=== PATIENT | female | born 1995 | race Caucasian/White ===

== ENCOUNTER 2021-02-22 02:40 | Inpatient (IN) | payer OTHER ==
[~2021-02-22] VITALS: Ht 170.2 cm; Wt 100.7 kg
[~2021-02-22 02:40] MED LIST: BACTRIM DS TAB1 EACH PO; PYRIDIUM100 MG PO; ZOFRAN8 MG PO
[2021-02-22 04:01] LABS: HCT 36.6 % (37.0-47.0); HGB 12.7 g/dl (12.5-16.0); MCH 31.4 pg (25.0-31.0); MCHC 34.7 g/dL (32.0-36.0); MCV 90.6 fL (78.0-100.0); MPV 12.3 fL (6.0-9.5); RBC 4.04 M/uL (4.20-5.40); RDW 12.2 % (11.5-14.0); WBC 15.5 K/uL (4.0-10.5)
[2021-02-22 04:02] LABS: BILIRUBIN NEGATIVE (NEGATIVE); BLOOD 2+ Ery/uL (NEGATIVE); CLARITY CLEAR (CLEAR); COLOR YELLOW (YELLOW); GLUCOSE (U) NORMAL (NORMAL); LEUKOCYTES NEGATIVE Leu/uL (NEGATIVE); NITRITE NEGATIVE (NEGATIVE); PROTEIN NEGATIVE (NEGATIVE); SPECIFIC GRAVITY 1.025 (1.001-1.030); UROBILINOGEN 0.2 mg/dL (0.2-1.0)
[2021-02-22 04:09] LABS: AMORPHOUS URATES CRYSTALS TRACE; BACTERIA 1+; CALCIUM OXALATE CRYSTALS MODERATE; MUCOUS MODERATE; URINARY RBC RARE; URINARY WBC RARE
[2021-02-23 05:53] LABS: HCT 31.4 % (37.0-47.0); HGB 10.6 g/dl (12.5-16.0); MCHC 33.8 g/dL (32.0-36.0); MPV 11.9 fL (6.0-9.5); RBC 3.31 M/uL (4.20-5.40); RDW 12.9 % (11.5-14.0); WBC 13.4 K/uL (4.0-10.5)
[2021-02-23 06:11] LABS: MCV 94.9 fL (78.0-100.0)
== END 2021-02-24 10:30 | disposition home or self-care (01) | DRG 806 ==
LOC: FER 02:40 → FOB 02:41
PROVIDERS: ADMIT Obstetrics & Gynecology
PROC: 10E0XZZ Delivery of Products of Conception, External Approach (ICD-10-PCS; principal; 2021-02-22)
PROC: 0UQMXZZ Repair Vulva, External Approach (ICD-10-PCS; 2021-02-22)
DX: O99.214 Obesity complicating childbirth (principal); Q23.1 Congenital insufficiency of aortic valve; Z37.0 Single live birth; D62 Acute posthemorrhagic anemia; Z20.822 Contact with and (suspected) exposure to COVID-19; O36.5930 Maternal care for other known or suspected poor fetal growth, third trimester, not applicable or unspecified; Z3A.40 40 weeks gestation of pregnancy; Z86.16 Personal history of COVID-19; O71.82 Other specified trauma to perineum and vulva; O99.03 Anemia complicating the puerperium; Z88.5 Allergy status to narcotic agent
CPT/HCPCS: 36415; 81001; J2001; J2405; J7120; U0002

== ENCOUNTER 2021-10-26 09:44 | Emergency (ER) | payer OTHER ==
[2021-10-26 11:06] LABS: BASOPHIL 0.6 % (0-2); EOSINOPHIL 1.3 % (0-5); HCT 38.9 % (37.0-47.0); LYMPHOCYTE 26.4 % (15-48); MCH 29.8 pg (25.0-31.0); MCHC 33.4 g/dL (32.0-36.0); MCV 89.2 fL (78.0-100.0); MONOCYTE 7.2 % (0-12); MPV 11.1 fL (6.0-9.5); NEUTROPHIL 63.4 % (41-80); NRBC 0; PLT 159 K/uL (150-400); RBC 4.36 M/uL (4.20-5.40); RDW 11.8 % (11.5-14.0); WBC 5.4 K/uL (4.0-10.5)
[2021-10-26 11:18] LABS: BUN/CREAT RATIO (CALC) 13.5 RATIO; CREATININE 0.74 mg/dL (0.51-0.95); POTASSIUM 3.8 mmol/L (3.5-5.1)
== END 2021-10-26 13:08 | disposition home or self-care (01) ==
LOC: FER 09:44
PROVIDERS: Emergency Medicine
DX: O03.9 Complete or unspecified spontaneous abortion without complication (principal); Z88.5 Allergy status to narcotic agent; Z28.310 Unvaccinated for COVID-19
CPT/HCPCS: 36415; 76801; 80048; 84702; 85025; 86900; 86901